=== PATIENT | female | born 1950 | race Caucasian/White ===

== ENCOUNTER 2018-10-23 06:04 | Inpatient (IN) | payer MEDICARE, OTHER, SELFPAY ==
[2018-10-05 09:42] VITALS: BMI 30.4
[2018-10-23] VITALS (14 sets, daily range): BP systolic 102–135; BP diastolic 57–80; PULSE 63–90; RESP 12–23; TEMP 36.4–37.2; O2SAT 92–100; BMI 29.9
--- NOTE | 2018-10-23 06:00 | DI.RAD.S_ITS ---
PROCEDURE: XR SHOULDER RT 1V INDICATIONS: post operative right shoulder TECHNIQUE: 1 views of the shoulder were acquired. COMPARISON: [facility] [place], [place], XR SHOULDER 2+ VIEWS RIGHT, 06/15/2018, 13:51. FINDINGS: Bones: Expected postoperative changes are present related to a total right shoulder arthroplasty. The metallic prosthetic component appears to be appropriately positioned. No definite fractures are evident. Degenerative changes of the acromial clavicular joint and imaged portions of the spine are not well characterized. Soft tissues: No suspicious soft tissue calcifications. Soft tissue edema is present about the shoulder. No unexpected radiopaque foreign bodies are evident. A surgical drainage catheter is incidentally noted. IMPRESSION: Expected post surgical changes related to a right shoulder arthroplasty. Dictated by: Rodney Castanon M.D. on 10/23/2018 at 10:02 Approved by: Rodney Castanon M.D. on 10/23/2018 at 10:03
[2018-10-23] MEDS: LACTATED RINGERS 1,000 ML 42 ML IV (07:06)
[2018-10-23] MEDS: ACETAMINOPHEN 325 MG TABLET 975 MG PO ×3 (07:07→20:27)
--- NOTE | 2018-10-23 07:13 | PM.PREOP ---
Pre-operative Note Interval Note History & Physical reviewed/Exam performed by Physician: Yes Changes to H&P: No
[2018-10-23] MEDS: fentaNYL 100 MCG/2 ML INJ 50 MCG IV (07:40)
[2018-10-23] MEDS: MIDAZOLAM 2 MG/2 ML VIAL IV (07:40)
[2018-10-23] MEDS: CLINDAMYCIN 900 MG/50 ML PIGGYBACK 50 MG IV (08:00)
--- NOTE | 2018-10-23 08:02 | SUR.PREOP ---
Block start time [0740] . Monitoring initiated and maintained throughout procedure. Oxygen and medications given per anesthesiologist instructions. Patient remained stable throughout procedure, no adverse reactions noted. Block end time [0752]. Pt alert and talking to staff and at bedside during the block. pt remained in normal sinus throughout the block. pt taken directly into the or after completion of the block.
--- NOTE | 2018-10-23 08:07 | PC.NURSE ---
Day shift: Pt not on AC unit at this time.
[2018-10-23] MEDS: TRANEXAMIC ACID 1,000 MG VIAL 1000 MG INJ ×2 (08:20→09:29)
--- NOTE | 2018-10-23 08:36 | SUR.OPER ---
Beach chair with Schlein shoulder positioner. Lower body on padded OR bed. Head in foam padded head cradle, secured with straps. Non-operative arm secured <90 degrees abduction. Pillow under knees. Safety belt at thigh. Cloth tape over blanket over lower legs.
[2018-10-23] MEDS: BUPIVACAINE 0.5% W/ EPI (PF) VIAL 30 ML INJ (08:44)
[2018-10-23] MEDS: THROMBIN (RECOMBINANT) 5,000 UNIT VIAL 5000 UNIT TOP (08:47)
--- NOTE | 2018-10-23 09:20 | PM.PROC.1 ---
Procedures Date/Time Date of procedure: 10/23/18 Time of procedure: 07:40 Nerve Block Time out performed: Yes Local anesthetic used: other (Ropivacaine 0.5% 12ml + Lido 2% w/ epi 4ml) Location of anesthetic used: Right Interscalene Amount of anesthesia used (mL): 16 (see above) Nerve blocks: brachial plexus (right interscalene) Procedure successful: Yes Patient tolerated procedure: well and no complications Complications: none Additional comments: Patient in procedure room preoperatively. Monitors place and O2 per NC applied. IV sedation using fentanyl 50mcg and midazolam 1mg given. Chloroprep scrub and sterile drape placed. Landmarks ID'd and confirmed with ultrasound. Local skin wheal with 1% Lido. [employer] Sonoplex 22g 50mm needle used with nerve stimulator. Positive biceps twitch to 5mAmp. Negative aspiration. Negative test dose. Total volume of 16ml consisting of 14ml 0.5% Ropivacaine and 4ml 2% Lidocaine with 1:100K epi. Patient tolerated well and without complication.
--- NOTE | 2018-10-23 09:31 | P.PCN_ITS ---
Procedures Date/Time Date of procedure: 10/23/18 Time of procedure: 07:40 Nerve Block Time out performed: Yes Local anesthetic used: other (Ropivacaine 0.5% 12ml + Lido 2% w/ epi 4ml) Location of anesthetic used: Right Interscalene Amount of anesthesia used (mL): 16 (see above) Nerve blocks: brachial plexus (right interscalene) Procedure successful: Yes Patient tolerated procedure: well and no complications Complications: none Additional comments: Patient in procedure room preoperatively. Monitors place and O2 per NC applied. IV sedation using fentanyl 50mcg and midazolam 1mg given. Chloroprep scrub and sterile drape placed. Landmarks ID'd and confirmed with ultrasound. Local skin wheal with 1% Lido. PaRealtyAPX Sonoplex 22g 50mm needle used with nerve stimulator. Positive biceps twitch to 5mAmp. Negative aspiration. Negative test dose. Total volume of 16ml consisting of 14ml 0.5% Ropivacaine and 4ml 2% Lidocaine with 1:100K epi. Patient tolerated well and without complication.
--- NOTE | 2018-10-23 10:03 | PM.OP.1 ---
Operative Date/Time/Diagnoses Date of procedure: 10/23/18 Time of procedure: 09:45 Pre-op diagnosis: Right shoulder osteoarthritis Post-op diagnosis: same Procedure & Clinicians Procedure: Right total shoulder replacement Same procedure as scheduled: Yes Indications: The patient has had progressively worsening right shoulder pain with radiographic changes consistent with arthritis. Non-operative management has failed and the patient has requested total shoulder replacement. The risks, benefits and alternatives to surgery were discussed with the patient prior to proceeding. Risks discussed included, but were not limited to, failure to relieve pain, stiffness, infection, nerve damage, deep venous thrombosis, pulmonary embolism, stroke, coma, heart attack, permanent paralysis and , as well as the potential need for eventual revision of the prosthetic. Surgeon: Rojelio Villalobos Store Warehouse Associate: Sal Preciado Click Yes if Unassisted: No Anesthesia Type: General, Peripheral nerve block and Local Operative Notes Findings: Significant osteoarthritic change with loss of cartilage on the humerus more than the glenoid, a moderate sized loose body was also encountered. Closure Type: primary Specimen(s): none sent Prosthetic devices, grafts, tissues, transplants, or devices: Prosthetics used in this procedure were manufactured by the [employer] and included an Altivate short stem total shoulder system with a 12 mm humeral stem with a neutral neck and an offset 42 x 18 mm humeral head. There was a 42 mm all polyethylene pegged E+ glenoid. Applied: drain(s) and implant(s) Estimated Blood Loss (mL): 150 Blood products transfused: none Procedure in detail: The patient was seen in the pre-operative area, where the patient identified the right shoulder as the operative site and this was marked with my initials. The patient received pre-operative antibiotics, underwent an interscalene block, and was taken to the operating room and placed on the operative table in the supine position. After satisfactory anesthesia, a full ?time out? was performed. The patient was repositioned in the ?beach chair? position using a dedicated positioner. All pressure points were well padded, and the knees were slightly bent to prevent tension on the sciatic nerves. The right arm was prepared from the fingers to the base of the neck with ChloroPrep in the usual fashion and draped through sterile drapes. An approximately 15 cm incision was created, starting at the clavicle above the coracoid process and extended towards the deltoid insertion. The deltopectoral interval was used to access the shoulder. The cephalic vein was taken medially. A self retaining retractor was placed. The upper centimeter of the pectoralis major tendon was released. The ?three sisters? were identified and cauterized. The axillary nerve was palpated and protected throughout the case. The biceps was released from its groove and tenodesed over the top of the pectoralis major tendon. The subscapularis was released from the lesser tuberosity with a subscapularis peel and tagged for later repair. The shoulder was dislocated and a cutting guide was used for the proximal humeral osteotomy in 30 degrees of retroversion. A starter reamer was used followed by the cylindrical reamers. This continued in larger sizes in till cortical bite was achieved. Sequential broaching was then performed until a line to line fit with the reamer occurred. A proximal humeral protector was then placed. We then removed the self-retaining retractor and placed retractors to access the glenoid. The subscapularis was released with a ?360 degree release? with care being taken to protect the axillary nerve with the inferior portion of this procedure. The remnant of labrum and biceps stump were removed. The appropriate size reamer was chosen with the glenoid sizer, and the guide pin placed. The glenoid was appropriately reamed. The guide for the peripheral holes was used and the center hole enlarged. The trial glenoid was placed with good stability. We then cemented the final implant into place after irrigating the peg holes and drying them with thrombin-soaked Gelfoam. We returned our attention to the humerus, a trial humeral head was applied and a trial reduction performed. Stability was checked with 50% posterior translation, 45? external rotation with the subscapularis held in the repaired position and 70? of internal rotation in the ?scarecrow position?. This was felt to be satisfactory and the appropriate implants were opened. Five holes were drilled along the humeral osteotomy and #2 TiCron sutures placed for eventual subscapularis repair. The humeral prosthetic was impacted into the humerus. The humeral head was applied when the stem was still slightly proud and impacted to both seat the head and fully seat the stem. The joint was relocated one final time. The joint was irrigated and the subscapularis repaired to the previously placed sutures using Carlos Enrique-Stu sutures. The top of the subscapularis was closed to the leading edge of the supraspinatus with a figure of 8 #2 TiCron to close the rotator interval. A deep drain was placed and brought out supero-laterally. The deltopectoral interval was closed with interrupted 0 Vicryl. The subcutaneous layer was closed with 3-0 Vicryl, and the skin with a running 3-0 V-Lock suture and SteriStrips. An Aquacel Ag dressing was applied, the patient?s arm was placed in a sling, and the patient was taken to recovery having tolerated the procedure well. Complications: none Condition: stable Disposition: PACU Plan for aftercare: The patient will be maintained on a standard total shoulder replacement protocol with passive range of motion limited to 90 degrees forward flexion, 0 degrees external rotation at the side, 0 degrees abduction and internal rotation to the body. The patient will receive aspirin and sequential compression devices for DVT prophylaxis. The patient will be discharged home when safe for the home environment, likely tomorrow.
[2018-10-23] MEDS: HYDROMORPHONE 2 MG INJ 0.5 MG IV ×3 (10:28→10:44)
[2018-10-23] MEDS: hydrOXYzine 50 MG/ML INJ 25 MG IM (10:48)
--- NOTE | 2018-10-23 10:56 | SUR.PHASEI ---
Report called to Heather
--- NOTE | 2018-10-23 11:19 | PC.NURSE ---
Day shift: Pt on unit at approx 1110 from PACU.Pt is A&Ox3. Oriented to room and call light. Aquacel Is CDI. Sling in place. Pt agrees to not get OOB w/o help from staff.
--- NOTE | 2018-10-23 11:22 | SUR.PHASEI ---
Pt transferred to the floor. VS stable. Drsg CDI. Minimal output to HV. IV saline locked. Pt tolerating pos. Belongings bag with patient. Report to Alison.
[2018-10-23] MEDS: LACTATED RINGERS 1,000 ML 125 ML IV ×2 (12:00→17:30)
[2018-10-23] MEDS: OXYCODONE IR 5 MG TABLET PO ×2 (13:54→14:38)
--- NOTE | 2018-10-23 14:29 | PT.IIE ---
Current Diagnoses Primary osteoarthritis, right shoulder (10/23/18) Surgery Performed Operation Date: 10/23/18 07:45 Actual Procedures p Total Shoulder Arthroplasty(Right) - Rojelio Villalobos MD Surgical History (Last Updated 10/05/18 @ 10:18 by Vannessa Stewart RN) H/O left wrist surgery (Acute ~1999) History of ankle surgery (Acute ~2012) Hx of eye surgery (Acute) Hx of shoulder surgery (Acute ~2014) Hx of thumb surgery (Acute) Medical History (Last Updated 10/05/18 @ 10:17 by Vannessa Stewart RN) Arthritis (Acute) Easy bruisability (Acute) History of prosthetic unicompartmental arthroplasty of both knees (Acute) Migraines (Acute) Pneumonia (Acute) Physical Therapy Inpatient Evaluation/Re-Eval M1 PT/OT-IP Prior Functional Status Start: 10/23/18 13:32 Freq: NEEDED Status: Active Protocol: Document 10/23/18 14:29 RS (Rec: 10/23/18 14:41 RS [id number]) Medical Review Prior Functional Status Medical History Reviewed Yes Diet/Fluid Consistency Regular Communication no known deficits Mobility and Gait ind without AD, denies falls Activities of Daily Living and IADL's ind Social History Household Members spouse Living Arrangements House Number of Floors (Floors) Two Floors Number of Stairs To Enter/Railing? 2STE Home Environment Standard Height Toilet Home Equipment Front Wheel Walker Straight Cane Employment Status Retired Additional Social History Comment is moving to [place] in the near future M2 PT-IP Current Condition Start: 10/23/18 13:32 Freq: NEEDED Status: Active Protocol: Document 10/23/18 14:29 RS (Rec: 10/23/18 14:41 RS [id number]) Physical Therapy Current Condition Current Condition Evaluation Date 10/23/18 Treatment Diagnosis T TSA Onset Date 10/23/18 Precautions Shoulder Precautions Sling PROM Internal Rotation to Body No External Rotation No Abduction Forward Flexion to 90 degrees Pendulums Weight Bearing Status Weight Bearing Status Non-Weight Bearing M3 PT-IP Subjective Start: 10/23/18 13:32 Freq: NEEDED Status: Active Protocol: Document 10/23/18 14:29 RS (Rec: 10/23/18 14:41 RS [id number]) Subjective Physical Therapy Visit Type Type Initial Evaluation Visit Start Time 13:30 Visit Stop Time 14:29 Total Visit Minutes 59 Physical Therapy Visit Comments Patient Comments reports having the neck of an 82 year old and expresses concern about the sling pulling on it, is hoping to get a different sling with waist support, RN notified. Patient Goals go home tomorrow Therapy Pain Assessment Pain When Pain Assessed At Rest Pain Present Pain Present Pain Reported Location right shoulder Description Pressure Sharp Throbbing With Movement Pain Behaviors Facial Grimacing Guarding Wincing Pain Management Techniques Apply Cold Elevation Modification of Treatment Re-positioning Timing of Activity with Medications M4 PT-IP Mobility and Gait Start: 10/23/18 13:32 Freq: NEEDED Status: Active Protocol: Document 10/23/18 14:29 RS (Rec: 10/23/18 14:41 RS [id number]) PT-Bed Mobility Assessment Supine to Sit Supine to Sit Contact Guard Assistance Head of Bed Elevated Scooting Scooting to Edge of Bed Standby Assistance PT-Transfer Assessment Sit to and From Stand Sit to and from Stand Standby Assistance Equipment Transfer Assistive Device Gait Belt Transfers Transfer Destination Chair Toilet Transfer Technique walked Transfer Ability Level of Assist Standby Assistance Comments Mobility Comments Pt is steady on her feet, no LOB, most of SBA is for IV management and safety for first time OOB since surgery. Gait Assessment Gait Gait Assistance Required: Standby Assistance Distance (Feet) 275 Able to Maintain Weight Bearing Status Yes During Gait Assistive Devices Assistive Device Gait Belt Gait Deviations General Gait Pattern Within Normal Limits Comments Gait Comments Pt is steady on her feet, no LOB, most of SBA is for IV management and safety for first time OOB since surgery. PT-Balance Assessment Sitting Balance and Reactions Static Sitting Balance Ability Normal Dynamic Sitting Balance Ability Normal Standing Balance and Reactions Static Standing Balance Ability Normal Dynamic Standing Balance Ability Good Device Used none M5 PT-IP Objective Assessments Start: 10/23/18 13:32 Freq: NEEDED Status: Active Protocol: Document 10/23/18 14:29 RS (Rec: 10/23/18 14:41 RS [id number]) Orientation Orientation/Cognition Level of Alertness Alert Orientation Name Age Birthday Month Date Year Day of Week Place Situation Language Function Ability No Deficits Noted Safety Awareness Understands Safety Issues Memory Description No Deficits Noted Gross Range of Motion Upper Extremity ROM Assessment Right Impaired Lower Extremity ROM Assessment Within Functional Limits Strength Upper Extremity Strength Assessment Right Impaired Lower Extremity Strength Assessment Within Functional Limits Coordination Assessment Gross Coordination Gross Coordination WNL M6 PT-IP Treatment Start: 10/23/18 13:32 Freq: NEEDED Status: Active Protocol: Document 10/23/18 14:29 RS (Rec: 10/23/18 14:41 RS [id number]) Physical Therapy Treatment Education Education Provided Precautions Weight Bearing Status Post-Op Packet Safety M7 PT-IP Assessment and Plan Start: 10/23/18 13:32 Freq: NEEDED Status: Active Protocol: Document 10/23/18 14:29 RS (Rec: 10/23/18 14:41 RS [id number]) PT Summary Assessment and Plan Potential Rehabilitation Potential Good Status of Condition at Evaluation Stable Summary Impairments Pain Progress Towards Goals Safe For Discharge Goals Met Assessment Summary Pt is POD#0 R TSA. Pt presents in sling and is having pain at rest and with activity. Despite this, pt is completely steady with mobility. Pt currently requires SBA for all mobility, but most of this is for IV pole management and safety with first attempt mobilizing OOB since surgery. It is anticipated that pt will be ind with functional mobility by discharge tomorrow . Pt is safe to discharge directly home with intermittent assist from spouse. Pt has no other acute PT goals, therefore, will sign off with the anticipation that pt will continue mobilizing frequently with nursing staff and will begin OPPT once appropriate. Frequency of Treatment Frequency Of Treatment Discharge Recommendations To Nursing Amount of Assist Needed Standby Assistance 1 Person Assist Discharge Recommendations PT Discharge Recommendations Home with Assistance Outpatient PT
--- NOTE | 2018-10-23 16:01 | CM.DANOTE ---
DCP/Assessment: Reviewed chart. Patient is a 68yr old female admitted to [facility] for right TSA performed today by Dr. Villalobos. Primary payor is 1)Medicare 2)[facility]. Patient admitted for surgery today. Patient placed in room#225. PT has evaluated patient and cleared her to return home when medically stable. Patient resides with spouse in [place]. Per notes, patient appears I in ADL's prior to admit. INTERNAL CONTROLS SPECIALIST will attempt in person visit tomorrow 10-24-18. P: Anticipate home when medically stable. Outpatient recommendation is outpatient therapy. 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 No History Provided By Patient Medical Record Prior Living Arrangements House Household Members spouse Independent with ADL's Yes Is patient alert and oriented? Yes Caregiver for Another No DME Already Rented / Owned FWW / Walker Cane Patient/Family Preference OP PT Therapy Barriers to Discharge No Discharge Plan Home Transportation Arrangement Family to provide transport. Referrals Initiated None needed Review Status In Process Next Review Type Continued Stay Review Pre-Anesthesia Assessment Start: 10/05/18 09:41 Freq: Status: Active Protocol: Document 10/05/18 09:42 CAB (Rec: 10/05/18 10:29 CAB [id number]) Pre-Anesthesia Assessment Patient Information Reviewed Via Phone Assessment Assessment Completed With Patient Primary Care Provider Melina Ruiz Seen Specialist in Last 12 Months Yes Specialist Seen Orthopedist Primary Language Lithuanian Data Systems Manager Required No Height 165.1 cm Weight 83.007 kg Body Mass Index (BMI) 30.4 Visual Assist Glasses Dentition Type Teeth, Natural Present Barriers to Learning None Other Aids No Hx Anesthesia Reactions No Hx Family Anesthesia Reaction No Hx Malignant Hyperthermia No Hx Blood Transfusions No Anesthesia Review Requested No Customer Consultant No alcohol intake current alcohol intake frequency 0-2 drinks per day Smoking Status Never smoker Substance Use Type marijuana Comment Advised not to smoke 24 hours prior to surgery Pain Present Pain Reported Musculoskeletal Symptoms Joint Pain Joint Stiffness Limited Range of Motion Neck Pain Numbness Tingling History of Falling (Recent or History of No ) Patient is completely paralyzed or No completely immobile Mental Status Oriented to own ability Is patient on oxygen? No Does patient have WHITEHEAD/SOB No Hx Sleep Apnea No Currently Taking a Beta Rahul No Can You Climb a Flight of Stairs Without Yes SOB Hx Chest Pain No Hx SOB No Hx Syncope or Dizziness No Anti-Coagulant Therapy No Has a Payroll Consultant No Cardiac Testing No Hx Pacemaker/ICD No Pacemaker Rep Required? No Cardiac Clearance Received Not Applicable Diet Type At Home Regular Low Carb dysphagia No Urinary Catheter Present No Hx Urinary Self Catheterization No Diabetes No Patient No Lactating No Hx Drug Resistant Organism No Presence of External or Internal Medical Yes: Bilateral partial knee Devices prosthesis Have you traveled outside the [facility] in the last 30 days? Marital Status Lives With spouse Prior Living Arrangements House Number of Floors (Floors) Two Floors Support System Spouse Does the Patient Have Assistance After Yes Surgery Patient Discharge Plan Description Return Home Comment Pt advised overnight length of stay per surgeon's office Feels Safe in Current Environment Yes Been Physically Hurt or Threatened By a No Person in Current Environment Do you have thoughts of harming yourself None or others? Are you currently considering suicide? No Do you have a plan to hurt yourself or No Plan others? Do You Have Any Spiritual Beliefs That No May Affect Your HC Choices? Do You Have Any Cultural Practices That No May Affect Your HC Choices? Who Can We Speak to About Patient's Care Family, friends Identifying Code for Release of Patient Declines to issue Information Health Care Proxy/Next of Kin Shakir () Health Care Proxy or [phone] Emergency Contact Name Shakir () Emergency Contact or [phone] Advance Directives? No: Declines further information PAC Instructions Do not shave/clip surgical site Durable medical equipment Medications to take/avoid Nasal antibiotic No ETOH/petroleum product on skin DOS NPO Post-op transportation Pre-surgical wash Sturdy shoes/comfortable clothes Do not bring valuables and remove jewelry
[2018-10-23] MEDS: OXYCODONE IR 10 MG TABLET PO ×3 (17:26→23:59)
[2018-10-23] MEDS: HYDROMORPHONE 0.5 MG INJ IV ×4 (18:08→22:07)
[2018-10-23] MEDS: CYCLOBENZAPRINE 10 MG TABLET PO (18:25)
[2018-10-23] MEDS: hydrOXYzine pamoate 25 MG CAPSULE PO (19:10)
[2018-10-23] MEDS: NAPROXEN 250 MG TABLET 500 MG PO (20:27)
[2018-10-23] MEDS: ASPIRIN EC 81 MG TABLET PO (20:27)
[2018-10-24 00:01] VITALS: BP 127/76; PULSE 71; RESP 18; TEMP 36.6; O2SAT 97
[2018-10-24] MEDS: hydrOXYzine pamoate 25 MG CAPSULE PO ×2 (01:31→07:44)
[2018-10-24] MEDS: CYCLOBENZAPRINE 10 MG TABLET PO (01:31)
[2018-10-24] MEDS: LACTATED RINGERS 1,000 ML 125 ML IV (01:35)
[2018-10-24] MEDS: OXYCODONE IR 10 MG TABLET PO ×2 (03:43→07:44)
[2018-10-24 05:20] VITALS: BP 119/70; PULSE 66; RESP 16; TEMP 36.3; O2SAT 96
[2018-10-24] MEDS: HYDROMORPHONE 0.5 MG INJ IV (06:47)
[2018-10-24 07:03] LABS: Hematocrit 33.2 % (36-46); Hemoglobin 11.2 g/dL (12.0-16.0); Mean Corpuscular HGB Conc 33.8 % (30-36); Mean Corpuscular Volume 100.7 fL (80-100); Platelet Count 195 X10^3/uL (150-400); Red Blood Cell Count 3.29 X10^6/uL (4.0-5.2); Red Cell Distribution Width 12.2 % (11.6-14.8)
--- NOTE | 2018-10-24 07:21 | PM.DS.1 ---
History of Present Illness Date Patient Seen: 10/24/18 Time Patient Seen: 07:21 Chief complaint: 80026 Right Total Shoulder Arthroplasty Narrative: The history of present illness and physical exam are contained in the chart in a previously completed note. Please refer to that note for this information. Discharge Providers Date of admission: 10/23/18 06:04 Discharge Date: 10/24/18 Primary care physician: Melina Ruiz MD Consults: 10/23/18 11:18 Consult to Discharge Planning Routine Comment: Consult to Occupational Therapy Evaluate & Treat Comment: Physician Instructions: Evaluate and treat Consult to Physical Therapy Evaluate & Treat Comment: Physician Instructions: Evaluate and Treat Consult to Respiratory Therapy Evaluate & Treat Comment: Physician Instructions: Evaluate and treat Discharge provider: Rojelio Villalobos MD Summary Discharge Diagnosis: 1. Right shoulder osteoarthritis 2. Post hemorrhagic anemia Hospital Course: The patient was admitted to the hospital and taken directly to the operating room on October 23, 2018. She underwent a right total shoulder replacement without complications. She was stable postoperative day 1 with only the anticipated pain. she had been able to make it to the bathroom several times under her own power overnight. At the time of this dictation is felt she will be ready for discharge today. Status at Discharge Cognitive/behavioral status at discharge: oriented Functional status at discharge: independent ambulation Overall status at discharge: patient is progressing back to baseline Time Spent with Patient Less than 30 minutes Exam Vital Signs (past 8 hours): - 10/24/18 00:01 10/24/18 05:20 Temperature 97.9 F 97.3 F L Pulse Rate 71 66 Respiratory Rate 18 16 Blood Pressure 127/76 119/70 Pulse Oximetry 97 96 Oxygen Delivery Method Room Air Oxygen Flow Rate 0 Narrative Exam Narrative: Right shoulder is dressed with no drainage on the bandage. Light touch is intact in the radial, ulnar, median, muscular cutaneous and axillary nerve distribution. She can extend her thumb, abduct her thumb, abduct her fingers and can fire her biceps and deltoid. Objective Labs Result Diagrams: 10/24/18 06:25 Labs: Laboratory Results - last 24 hr 10/24/18 06:25 WBC 10.0 RBC 3.29 L Hgb 11.2 L Hct 33.2 L MCV 100.7 H MCH 34.0 MCHC 33.8 RDW 12.2 Plt Count 195 Discharge Plan Discharge Plan Patient Disposition: Home Discharge Med Rec/Prescriptions Prescriptions: New acetaminophen 325 mg Tablet 975 mg PO TID 30 Days Qty: 270 RF: 0 aspirin 81 mg Tablet,Delayed Release (Dr/Ec) 81 mg PO BID 42 Days Qty: 84 RF: 0 oxycodone 5 mg Tablet 5 mg PO Q3HR PRN (Reason: Pain, Moderate (4-6)) Qty: 40 RF: 0 hydroxyzine pamoate 25 mg Capsule 25 mg PO Q6HR PRN (Reason: Nausea) Qty: 40 RF: 0 Continued cyclobenzaprine 10 mg Tablet 10 mg PO TID PRN (Reason: Muscle Spasm) RF: 0 naratriptan 2.5 mg Tablet 2.5 mg PO Q4H PRN (Reason: Migraine Headache) RF: 0 naproxen 500 mg Tablet 500 mg PO BID RF: 0 ascorbic acid (vitamin C) [Vitamin C] 1,000 mg Tablet Extended Release 1,000 mg PO DAILY RF: 0 vitamin A 10,000 unit Capsule 25,000 unit PO DAILY RF: 0 coenzyme Q10 [CoQ-10] 100 mg Capsule 300 mg PO DAILY RF: 0 apple cider vinegar 500 mg Tablet 500 mg PO DAILY RF: 0 calcium carbonate-vitamin D3 [Calcium 500 + D] 500 mg(1,250mg) -200 unit Tablet 1 tab PO DAILY RF: 0 cholecalciferol (vitamin D3) [Vitamin D3] 5,000 unit Tablet 5,000 unit PO DAILY RF: 0 omega 5-uhk-czk-fish oil [Fish Oil] 1,000 mg (120 mg-180 mg) Capsule 1 cap PO DAILY RF: 0 B12 5,000-100 mcg Lozenge 1,000 mcg Sublingual DAILY RF: 0 turmeric 400 mg Capsule 2,000 mg PO DAILY RF: 0 Follow up/Referrals: Rojelio Villalobos MD [Physician] - 2 Weeks Melina Ruiz MD [Primary Care Provider] - Provider Discharge Instructions Diet: Diet as Tolerated and Regular Activity: You may use your right hand in front of your body below shoulder level. Lift no more than 1-2 lb. Use the sling as needed for comfort. Cold/Heat Therapy: You may apply ice to the right shoulder for 15 minutes every hour as needed for pain relief. Skin/Wound/Dressing Care Report to your healthcare provider any signs of infection, such as:: chills, fever, night sweats, increased pain, unusual drainage and unusual redness Dressing: Leave the dressing in place until your follow-up. You may shower with the dressing in place. if the central strip become saturated with either water or blood please call the office. Visit Report/Discharge Packet Instructions: DI for Shoulder Replacement Stand Alone Forms: Surgery Discharge Discharge Data Primary Care Provider: Melina Ruiz Attending Provider: Rojelio Villalobos Admit Date/Time: 10/23/18 06:04 Quality VTE Deep Vein Thrombosis/Pulmonary Embolism Present on Admission: No
--- NOTE | 2018-10-24 07:50 | PC.NURSE ---
Day shift: Pt to d/c today. Student RN and instructor are giving pain meds and then removing IV and Saurav-vac. Will monitor results. Pt to d/c home w/ spouse at approx 1000 today.
[2018-10-24 08:25] VITALS: BP 123/71; PULSE 73; RESP 16; TEMP 36.9; O2SAT 100
[2018-10-24] MEDS: NAPROXEN 250 MG TABLET 500 MG PO (08:59)
[2018-10-24] MEDS: ASPIRIN EC 81 MG TABLET PO (09:00)
[2018-10-24] MEDS: ACETAMINOPHEN 325 MG TABLET 975 MG PO (09:00)
[2018-10-24] MEDS: POLYETHYLENE GLYCOL 3350 17 GM POWD.PACK PO (10:25)
--- NOTE | 2018-10-24 10:37 | OT.IP.EVAL ---
Current Diagnoses Primary osteoarthritis, right shoulder (10/23/18) Surgery Performed Operation Date: 10/23/18 07:45 Actual Procedures p Total Shoulder Arthroplasty(Right) - Rojelio Villalobos MD Past Medical History (Last Updated 10/05/18 @ 10:17 by Vannessa Stewart RN) Arthritis (Acute) Easy bruisability (Acute) History of prosthetic unicompartmental arthroplasty of both knees (Acute) Migraines (Acute) Pneumonia (Acute) Surgical History (Last Updated 10/05/18 @ 10:18 by Vannessa Stewart RN) H/O left wrist surgery (Acute ~1999) History of ankle surgery (Acute ~2012) Hx of eye surgery (Acute) Hx of shoulder surgery (Acute ~2014) Hx of thumb surgery (Acute) Occupational Therapy Inpatient Evaluation/Re-Eval M1 PT/OT-IP Prior Functional Status Start: 10/24/18 14:25 Freq: NEEDED Status: Active Protocol: Document 10/24/18 10:37 PJCatherine (Rec: 10/24/18 14:38 AMA [id number]) Medical Review Prior Functional Status Medical History Reviewed Yes Diet/Fluid Consistency Regular Communication WNL Mobility and Gait Pt states she ambulates indep without AD, denies falls Activities of Daily Living and IADL's Pt independent with all self care, IADLS, cares for chickens, cats, [place] on 5 [place] property. Prior Functional Level (Other details) Supportive spouse can provide 24 hr assist PRN at d/c. Social History Household Members spouse Living Arrangements House Number of Floors (Floors) Two Floors Number of Stairs To Enter/Railing? 2 stairs to enter, full flight to second level Home Environment Standard Height Toilet Walk in Shower Home Equipment Front Wheel Walker Straight Cane Shower Seat with Backrest Hand Held Shower Employment Status Retired Additional Social History Comment Pt is planning permanent move to [place] in 3 months. M2 OT-IP Current Condition Start: 10/24/18 14:25 Freq: Status: Active Protocol: Document 10/24/18 10:37 PJCatherine (Rec: 10/24/18 14:38 AMA [id number]) Occupational Therapy Current Condition Current Condition Evaluation Date 10/24/18 Treatment Diagnosis decreased self care s/p R TSA Diagnosis Onset Date 10/23/18 Post Operative Precautions Shoulder Precautions Sling PROM Internal Rotation to Body No External Rotation No Abduction Forward Flexion to 90 degrees Pendulums Weight Bearing Status Weight Bearing Status Non-Weight Bearing Allowed Weight Bearing Amount (enter % RUE or #) (%) M3 OT- IP Subjective and Pain Start: 10/24/18 14:25 Freq: Status: Active Protocol: Document 10/24/18 10:37 PJM (Rec: 10/24/18 14:38 [facility] [id number]) OT- Subjective Occupational Therapy Visit Type Type Initial Evaluation Visit Start Time 09:40 Visit Stop Time 10:37 Total Visit Minutes 57 Notes here for education this session. Occupational Therapy Visit Comments Patient Comments I want to make a good recovery from this because I have a lot I want to do. Patient/Caregiver Goals to go home today OT Pain Assessment Pain When Pain Assessed At Rest Pain Present Pain Present Pain Reported Location right shoulder Intensity 3 Scale Used Numeric (1 - 10) Description Aching Acute Pain Behaviors Guarding Management Techniques Apply Cold Distraction Timing of Activity with Medications M4 OT- IP ADL's Start: 10/24/18 14:25 Freq: Status: Active Protocol: Document 10/24/18 10:37 PJM (Rec: 10/24/18 14:38 [facility] [id number]) OT [id number] General Evaluation Self-Feeding Ability Independent Comments OT Self-Feeding Comments after set up to open some containers due to RUE in sling OT ADL-Grooming General Evaluation Grooming Ability Independent Comments OT Grooming Comments standing at sink OT ADL-Oral Care Comments Oral Care Comments standing at sink OT ADL-Dressing General Eval Upper Body Dressing Ability Moderate Assistance Lower Body Dressing Ability Independent Comments OT Dressing Comments provided education to pt/ re: donning/doffing sling, technique and sequence for upper body dressing within TSA precautions, unilateral method for donning socks OT ADL-Toileting General Evaluation Toileting Ability Independent OT ADL-Bathing General Evaluation Bathing Ability Minimal Assistance Comments OT Bathing Comments Provided education re: TSA precautions and adapted ADL techniques for showering. will assist pt PRN. M5 OT- IP IADL's Start: 10/24/18 14:25 Freq: Status: Active Protocol: Document 10/24/18 10:37 PJM (Rec: 10/24/18 14:38 [facility] [id number]) OT-Instrumental Activities of Daily Living Deficits IADL Deficits Identified Deficits Home Safety Awareness Awareness of Need for Assistance at Home Good Awareness Ability to Problem Solve Emergency Able to Problem Solve Situations Medication Management Medication Management No Deficits Identified Money Management Money Management No Deficits Identified Meal Preparation Meal Preparation Caregiver Provides Assist Meal Preparation Comments /friends to assist until pt able. Reset Merchandiser Reset Merchandiser Caregiver Provides Assist Reset Merchandiser Comments to assist until pt able. Driving Driving Caregiver Provides Assist Driving Comments to assist until pt able. M6 OT- IP Functional Cognition Start: 10/24/18 14:25 Freq: Status: Active Protocol: Document 10/24/18 10:37 PJM (Rec: 10/24/18 14:38 [facility] [id number]) Cognitive Factors Limiting Selfcare Function Cognitive Ability Level of Alertness Alert Patient Orientation Name Age Birthday Month Date Year Day of Week Place Situation Attention Span Ability Capable of Focused Attention Capable of Sustained Attention Ability to Follow Commands Able to Follow Multi-Step Commands Memory Description No Deficits Noted Safety Awareness No Deficits Noted Problem Solving Ability No deficits Noted Cognitive Comments Cognitive Assessment Comments Appears WFL OT- Vision and Hearing OT- Hearing Assessment OT- Hearing Assessment WFL OT- Vision Assessment Vision Assessment Comments Pt denies any recent vision changes M7 OT- IP Mobility and Balance Start: 10/24/18 14:25 Freq: Status: Active Protocol: Document 10/24/18 10:37 PJM (Rec: 10/24/18 14:38 [facility] [id number]) OT-Transfer Assessment Sit to and From Stand Sit to and from Stand Independent OT- Gait Assessment Gait Gait Assistance Required: Independent Assistive Devices Assistive Device None Comments Gait Ability Comments pt up in room ad brunilda OT- Balance Assessment Sitting Balance and Reactions Static Sitting Balance Ability Good Dynamic Sitting Balance Ability Good Standing Balance and Reactions Static Standing Balance Ability Good Dynamic Standing Balance Ability Good M8 OT- IP Objective Assessments Start: 10/24/18 14:25 Freq: Status: Active Protocol: Document 10/24/18 10:37 PJM (Rec: 10/24/18 14:38 [facility] [id number]) OT Gross Range of Motion Upper Extremity Range of Motion Assessment Right Impaired ROM Impairments RUE in sling OT Strength Upper Extremity Strength Assessment 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 Strength Hand Dominance Mixed Comments Strength Comments 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, otherwise strength NT due to recent surgery OT- Coordination Assessment Upper Extremity Finger to Nose Test Right UE Impaired Finger Tapping Test Right UE Impaired Comments Coordination Comments RUE in sling, pt using R hand as assist with holding light objects within sling OT-Muscle Tone Assessment Muscle Tone WNL Yes OT Sensation Assessment Comments Summary Comments RUE WNL Edema Edema Present Edema Comments slight edema noted in R fingers, provided education re : fist pumping to decrease edema M9 OT- IP Assessment and Plan Start: 10/24/18 14:25 Freq: Status: Active Protocol: Document 10/24/18 10:37 PJM (Rec: 10/24/18 14:38 PJM [id number]) OT Summary Assessment and Plan Potential Rehabilitation Potential Excellent Analytic Complexity at Evaluation Low Summary Progress Towards Goals Safe For Discharge Assessment Summary Low complexity OT assessment and all education completed today with pt/ re: R TSA precautions, donning/ doffing sling, adapted ADL techniques for dressing, bathing, and toileting. Supportive, capable will provide 24 hr assist at d/c. Pt plans to go home today. No further OT services needed. Discharge Recommendations OT Discharge Recommendations Home with 24/7 Assist
--- NOTE | 2018-10-24 10:57 | PC.NURSE ---
Day shift: Pt left unit by ambulating with DIRECTOR GIFT and Pt's spouse. They are going to the pharmacy to get MD scrips filled then they will be driving home. Paperwork signed and all questions answered. Pt has all personal belongings.
== END 2018-10-24 11:03 | disposition home or self-care (01) | DRG 483 ==
PROVIDERS: Admitting Provider Orthopaedic Surgery; PCP Family Medicine; Referring Provider Family Medicine; Visit Provider Orthopaedic Surgery
PROC: 0RQJ0ZZ Repair Right Shoulder Joint, Open Approach (ICD-10-PCS; CPT 23472; principal; 2018-10-23 07:45)
DX: M19.011 Primary osteoarthritis, right shoulder (principal)
CPT/HCPCS: 36415; 64450; 73020; 85027; 94760; 97116; 97161; 97165; 97530; 97535; C1776; J0330; J1100; J1170; J2250; J2405; J2704; J2795; J3010; J3410